=== PATIENT | male | born 1970 | race Caucasian/White ===

== ENCOUNTER → 2024-02-13 16:45 | Outpatient (REF) | payer OTHER, SELFPAY | LOC: HWRAD 16:45 | PROVIDERS: ATTENDING PHYSICIAN Family Medicine | DX: M54.50 Low back pain, unspecified (principal); N20.0 Calculus of kidney | CPT/HCPCS: 74018 ==

== ENCOUNTER → 2024-05-25 06:16 | Day surgery (SDC) | payer OTHER, SELFPAY | LOC: GI 06:16 | PROVIDERS: ATTENDING PHYSICIAN Internal Medicine Gastroenterology | DX: Z12.11 Encounter for screening for malignant neoplasm of colon (principal); K64.8 Other hemorrhoids; K57.30 Diverticulosis of large intestine without perforation or abscess without bleeding; K63.5 Polyp of colon; Z86.010 Personal history of colon polyps | CPT/HCPCS: 45385; 88305 ==

== ENCOUNTER 2024-09-10 13:16 | Emergency (ER) | payer OTHER, SELFPAY ==
[2024-09-10 13:49] VITALS: BP 158/103
--- NOTE | 2024-09-10 13:55 | ED.GENMED ---
ED Provider Triage
<Jose Angel Zuniga PA-C - Last Filed: 09/10/24 13:56>
-
Patient seen by provider in Triage?: Seen in Triage
54 yo male presents with L thumb lac while using a universal grinder tool. Last tetanus unknown
2cm linear lac overlying the dorsal MCP joint, likely complete extensor tendon lac as pt cannot extend thumb against gravity
Obtain XR, update TDAP
History of Present Illness
<Jose Angel Zuniga PA-C - Last Filed: 09/10/24 13:56>
General
Chief Complaint: Skin Surface Trauma
Time Seen by Provider: 09/10/24 16:06
<Sarah Kerns MD - Last Filed: 09/10/24 16:29>
General
Source: patient
History of Present Illness
History of Present Illness:
54-year-old male presents emergency department after accidentally suffering a laceration to his left thumb while using a universal grinder tool. He states that it slipped. This happened just prior to presentation. He is unaware of his last tetanus. He denies
any other complaints.
Past History
<Jose Angel Zuniga PA-C - Last Filed: 09/10/24 13:56>
Past History
ED Past Medical History: Other (migraines)
ED Past Surgical History: Other (hernia repair)
Social History
Living: with family
Employment: Employed
<Sarah Kerns MD - Last Filed: 09/10/24 16:29>
Social History
Tobacco: Non-smoker
Alcohol: Occasional
Drug: None
Phy Exam
<Sarah Kerns MD - Last Filed: 09/10/24 16:29>
Physical Exam
Physical Exam:
GENERAL: Alert , in no apparent distress
EYE: pupils equal and round
NECK: Supple
ENT: o/p clr, mmm.
CARDIAC: Regular rate and rhythm .
LUNGS: Clear breath sounds bilaterally, no acute respiratory distress, no wheezes/rales/rhonchi
ABDOMEN: Soft, without focal tenderness, no r/g, no cvat
NEUROLOGICAL: Alert and oriented, no focal neuro deficits
SKIN: Warm and dry, 2.5 CM lac noted dorsal mcp area L thumb with superficial less than 1 cm deep abrasion just superior to this. Inspected through FROM, tendon appears severed and pt unable to fully extend thumb. No joint invovlement suspected.
cap refill wnl, sens intact.
MUSCULOSKELETAL: No edema, well perfused.
PSYCH: Normal and appropriate interaction.
Course
<Jose Angel Zuniga PA-C - Last Filed: 09/10/24 13:56>
Orders/Labs/Results
Orders:
Orders
09/10/24 13:54
Tetanus/Diphth/Acelpertussis [Adacel] 0.5 ml IM .ONCE ONE
CR Finger(s)/thumb Min 2 Vw Lt Urgent
Comment:
Reason For Exam: thumb lac
Vital Signs
Initial and Last Documented VS:
Initial Vital Signs
Temp Pulse Resp BP Pulse Ox
97.4 F 92 20 158/103 99
09/10/24 13:49 09/10/24 13:49 09/10/24 13:49 09/10/24 13:49 09/10/24 13:49
Last Documented Vital Signs
Temp Pulse Resp BP Pulse Ox
97.4 F 92 20 158/103 99
09/10/24 13:49 09/10/24 13:49 09/10/24 13:49 09/10/24 13:49 09/10/24 13:49
<Sarah Kerns MD - Last Filed: 09/10/24 16:29>
Orders/Labs/Results
Orders:
Orders
09/10/24 13:54
Tetanus/Diphth/Acelpertussis [Adacel] 0.5 ml IM .ONCE ONE
CR Finger(s)/thumb Min 2 Vw Lt Urgent
Comment:
Reason For Exam: thumb lac
Vital Signs
Initial and Last Documented VS:
Initial Vital Signs
Temp Pulse Resp BP Pulse Ox
97.4 F 92 20 158/103 99
09/10/24 13:49 09/10/24 13:49 09/10/24 13:49 09/10/24 13:49 09/10/24 13:49
Last Documented Vital Signs
Temp Pulse Resp BP Pulse Ox
97.4 F 92 20 158/103 99
09/10/24 13:49 09/10/24 13:49 09/10/24 13:49 09/10/24 13:49 09/10/24 13:49
Procedures
<Sarah Kerns MD - Last Filed: 09/10/24 16:29>
Laceration Closure
Thumb:
Status of Wound: clean
Size of Wound in cm: 2.5
Description of Wound Edges: sharp
Preparation: cleaned with soap & water
Anesthesia: 1% Lidocaine with epi
Revision/Debridement: routine- no revision
Type of Closure: single layer closure
Skin Closure Material: 4-0 nylon
Number of sutures: 4
Additional information:
Tendon visible and appears to be fully lacerated. No joint involvement noted
<Sarah Kerns MD - Last Filed: 09/10/24 16:29>
*Critical Care Note
Total Time (30-74mins, 75-104mins- exclusive of procedures): Not Applicable
<Sarah Kerns MD - Last Filed: 09/10/24 16:29>
Update Note
Update Note:
Patient presents to the Emergency Department with _laceration
Number and Complexity of Problems Addressed at the Encounter
� Chronic conditions affecting care:
� Acute Exacerbation and/or Progression of Chronic Illness:
� Differential Diagnosis includes: But not limited to soft tissue injury, tendon injury, joint injury, etc. etc.
Amount and/or Complexity of Data to be Reviewed and Analyzed
� I performed an independent evaluation of and my interpretation is:
EKG:
CT:
Xrays: Read by me no fracture noted
Laboratory Studies:
Other:
� Review of other/old records reveals:
� Clinical information was obtained by an independent historian:
� Prescriptions/Medications Considered but not given:
� Further testing considered but not performed:
Risk of Complications and/or Morbidity or Mortality of Patient Management
� Social determinants of health affecting care:
� Discussion with other providers (PCP, Hospitalists, Consultants, etc):
� Escalation of care including admission/observation vs risk of discharge considered: Case discussed via [facility] text with Dr. Shields, aware of my concern regarding suspected EPL injury. Will see patient on Friday in his
[place] office. Agrees with plan for loose closure, antibiotics, tetanus updated.
ED Attending Note
<Jose Angel Zuniga PA-C - Last Filed: 09/10/24 13:56>
-
Portions of this chart may have been created with voice recognition software.� Occasional wrong word or��sound alike� substitutions may have occurred due to the inherent limitations of voice recognition software.
Discharge Plan
Departure
Patient Disposition: Home (Routine Discharge)
Date of Disposition: 09/10/24
Time of Disposition: 16:29
Patient with high blood pressure during this ER visit?: Yes
Condition: Good
Discharge Problem:
tendon injury, Laceration
Instructions: Laceration Repair With Stitches (DC), Tendon Laceration, BLOOD PRESSURE
Prescriptions:
New
cephalexin 500 mg capsule
500 mg PO Q6H Qty: 20 0RF
No Action
hydrocodone-acetaminophen 5 MG/500 MG tablet
1 tab PO Q4HPRN Qty: 15 0RF
hydrocodone-acetaminophen [Vicodin] 1 EACH tablet
1 tab PO Q6HPRN PRN (Reason: finger pain) Qty: 6 0RF
cephalexin 500 MG capsule
500 mg PO QID Qty: 40 0RF
Referrals:
Eliot Shields MD [Active] - 09/14/24
Activity Restrictions/Additional Instructions:
CALL DR SHIELDS ON Friday TO SECURE YOUR APPT ON FRIDAY. IF YOU DEVELOP REDNESS/WARMTH/DRAINAGE/FEVER, INCREASING/NEW PAIN OR OTHER WORRISOME SIGNS, GO TO THE ER IMMEDIATELY! YOU HAVE SUSPECTED TENDON INJURY.
Interventions
Interventions:
*Risk Screen - Suicide Last Done: 09/10/24 13:49
*General Assessment Last Done: 09/10/24 13:49
*Neglect/Abuse Screening Last Done: 09/10/24 13:49
Discharge Date and Time
Print Language: PASHTO
[2024-09-10 16:30] VITALS: BP 156/88
[2024-09-10] MEDS: ADACEL 0.5 ML IM (17:00)
== END 2024-09-10 17:10 | disposition home or self-care (01) ==
LOC: EMR 13:16
PROVIDERS: EMERGENCY PHYSICIAN Emergency Medicine; FAMILY PHYSICIAN Family Medicine
DX: S66.222A Laceration of extensor muscle, fascia and tendon of left thumb at wrist and hand level, initial encounter (principal); W29.0XXA Contact with powered kitchen appliance, initial encounter; Z23 Encounter for immunization; R03.0 Elevated blood-pressure reading, without diagnosis of hypertension
CPT/HCPCS: 99283; 12001; 90471; 73140; 90715

== ENCOUNTER 2024-11-04 10:02 | Outpatient (RCR) | payer OTHER, SELFPAY | END 2024-11-04 23:59 | disposition home or self-care (01) | LOC: ROT 10:02 | PROVIDERS: ATTENDING PHYSICIAN Orthopaedic Surgery Hand Surgery; FAMILY PHYSICIAN Family Medicine | DX: Z47.89 Encounter for other orthopedic aftercare (principal); S66.222D Laceration of extensor muscle, fascia and tendon of left thumb at wrist and hand level, subsequent encounter; Z73.6 Limitation of activities due to disability | CPT/HCPCS: 97018; 97110; 97140; 97166; 97535 ==

== ENCOUNTER 2024-11-25 10:08 | Outpatient (RCR) | payer OTHER, SELFPAY | END 2024-11-25 23:59 | disposition home or self-care (01) | LOC: RPT 10:08 | PROVIDERS: ATTENDING PHYSICIAN Orthopaedic Surgery Hand Surgery; FAMILY PHYSICIAN Family Medicine | DX: Z47.89 Encounter for other orthopedic aftercare (principal); S66.222D Laceration of extensor muscle, fascia and tendon of left thumb at wrist and hand level, subsequent encounter; Z73.6 Limitation of activities due to disability | CPT/HCPCS: 97018; 97110; 97140 ==

== ENCOUNTER → 2025-07-30 07:34 | Outpatient (REF) | payer OTHER, SELFPAY | LOC: MRI 07:34 | PROVIDERS: ATTENDING PHYSICIAN Student in an Organized Health Care Education/Training Program | DX: G50.0 Trigeminal neuralgia (principal) | CPT/HCPCS: 70553; A9575 ==

== ENCOUNTER 2025-08-01 19:06 | Inpatient (IN) | payer OTHER, SELFPAY ==
[2025-08-01 14:31] VITALS: BP 165/103
--- NOTE | 2025-08-01 15:11 | ED.GENMED ---
History of Present Illness
<Jessica Montalvo NP - Last Filed: 08/01/25 19:49>
General
Chief Complaint: DVT/Possible Blood Clot
Source: patient
Exam Limitations: none
Time Seen by Provider: 08/01/25 14:41
Nursing documentation reviewed up to this point in time: agreed with
History of Present Illness
History of Present Illness:
Patient sent to the emergency department by PCP for further evaluation/workup for a left retromandibular vein thrombus. He states that he developed pain over the left TMJ approximately 3 weeks ago. He followed up with his primary care provider 1
week later and was started on' some type of medication' to treat suspected TMJ. Patient states the pain continue to worsen and now is migrating down the left side of his face to the submandibular area. He was sent for an outpatient MRI on 07/30
which showed an extensive thrombus in the left retromandibular vein. He was sent to the ED by PCP requesting MRA/MRV of the neck as recommended by radiology. Patient denies any prior history of thrombus formation. He reports having cavities
filled to left teeth but this was after the pain is started. He reports swelling to the left side of his face after eating. Brought self to the emergency department for evaluation.
Past History
<Jessica Montalvo NP - Last Filed: 08/01/25 19:49>
Past History
ED Past Medical History: Hypercholesterolemia, Other (migraines, prediabetes) and Other (Kidney stones)
ED Past Surgical History: Appendectomy, Orthopedic (Tendon repair left thumb 09/2024) and Other (hernia repair 05/2025 )
Social History
Tobacco: Non-smoker
Alcohol: Occasional
Drug: None
Living: with family
Employment: Employed
Phy Exam
<Jessica Montalvo NP - Last Filed: 08/01/25 19:49>
General Physical Exam
General Presentation: well appearing and no apparent distress
General age: appears stated age
General Skin: warm and dry
General Habitus: normal
General Mental: alert
ENT Exam
ENT Exam: other (Pain left side of face from ear to submandibular region. No visible swelling)
Cardiovascular Exam
Cardiovascular Exam: regular rate/rhythm and no edema
Pulmonary Exam
Pulmonary Exam: lungs clear and no respiratory distress
Musculoskeletal Exam
Musculoskeletal Exam: full ROM and neuro vasc intact
Skin Exam
Skin Exam: normal color, warm/dry and no rash
Psychiatric Exam
Psychiatric Exam: normal mood/affect
Course
<Jessica Montalvo NP - Last Filed: 08/01/25 19:49>
Orders/Labs/Results
Orders:
Orders
08/01/25 Lunch
Regular
At Your Request: Full Participation
Does patient need a safe tray?: No
08/01/25 15:42
Complete Blood Count/With Diff Urgent
Comprehensive Metabolic Panel Urgent
PTT Urgent
Comment: ADD ON
Prothrombin Time Urgent
08/01/25 16:42
HEMATOLOGY CONSULT Urgent
Consulting Provider: Michela Bowers
Was physician already notified: Yes
08/01/25 17:02
Add On- LAB Urgent
Tests Added?: PTT
08/01/25 17:05
Clindamycin Phosphate [Cleocin] 300 mg 0.9% Sodium Chloride [Nss] 50 ml IV NOW
08/01/25 17:06
Heparin 7,400 units IV NOW STA
Nursing to Place Non Medication Order As Directed
Physician Order: PTT 6 hours after initial start of Heparin infusion
Above order entered?: Yes
08/01/25 17:15
Heparin 22643 Units/250 ml 25,000 units in 250 ml IV PER PROTOCOL
Weight to be used for heparin protocol in kilograms (kg):: 92
Protocol:: DVT/PE
PTT Goal Range to be used:: PTT 73 to 111 seconds
Order type:: Initial
INITIAL Infusion Dose (UNITS/KG/hr) & then follow protocol:: 18 units/kg/hr
Infusion Dose in UNITS/hr & then follow protocol (UNITS/hr):: 1,700
INFUSION RATE in mL/hr & then follow protocol (mL/hr):: 17
For DVT/PE algorithm, re-bolus for low PTT?: Yes
PTT less than or equal to 64 seconds:: Re-bolus 80 units/kg (max 10,000units). Increase by 400 units/hr
(+ 4mL/hr)
PTT 64.1 to 72.9 seconds:: Re-bolus 40 units/kg (max 5,000 units). Increase by 200 units/hr
(+ 2mL/hr)
PTT 73 to 111 seconds:: Target Range. No change in rate.
PTT 111.1 to 130.9 seconds:: Decrease rate by 200 units/hr (- 2 mL/hr)
PTT 131 to 199.9 seconds:: HOLD for 1 hr. Then decrease by 300 units/hr (- 3mL/hr)
PTT greater than or equal to 200 seconds:: HOLD for 2 hrs & Notify Provider. Then decrease by 400 units/hr
(- 4mL/hr)
Lab follow-up:: Each change, PTT q6h until 2 consecutive are therapeutic. Then
PTT daily.
08/01/25 17:24
Heparin 3,700 units IV PRN PRN
08/01/25 17:31
Neck With & W/O Contrast MRA [MA Neck With & W/o Contrast] Urgent
Comment: MRA/MRV neck
Reason For Exam: eval left retromandibular vein thrombosis
Recent pill cam endoscopy?: No
08/01/25 18:36
Admit/Transfer Patient As Directed
Co-Sign Provider:
Level of Care: Inpatient admission
Assign to:: Telemetry
Physician / Group: Zackary-Leo Sheu
Diagnosis: Left retromandibular vein thrombosis
Reason for Telemetry: Arrhythmia
Date to Stop Telemetry: 08/04/25
Time to Stop Telemetry: 11:00
Reason for Hospitalization: Left retromandibular vein thrombosis
Expected length of stay greater than two midnights?: Yes
ELOS- Estimated Length of Stay in days: 2
I certify the patient meets the requirements for IP care: Yes
PRN Pain Medication Management As Directed
May give lesser potent ordered pain med per pt: Yes
preference::
Protocol:: Medication orders for pain may be administered in a
manner that supports deferring to patient preference
when the pt is:
- Requesting an ordered lesser potent pain medication.
Least to most potent pain medications are defined
as: acetaminophen < NSAID < tramadol < opioids
(morphine, oxycodone, hydromorphone).
- Requesting a lesser dose of the same medication IF
ORDERED.
- Requesting a less intrusive route of administration
if both routes are prescribed by the provider (PO <
IV).
08/01/25 18:43
Code Status As Directed
Resuscitation Status: Full Code
08/01/25 22:00
Heparin 7,400 units IV PRN PRN
08/02/25 00:05
PTT Urgent
08/04/25 11:00
DC Protocol for Telemetry ONCE
Abnormal Lab Results
08/01/25
15:42
MPV 10.8 H fL
(7.4-10.4)
Absolute Monos (auto) 0.8 H 10^3/uL
(0.1-0.6)
Lymphocytes % 19.6 L %
(20.5-51.1)
Monocytes % 9.7 H %
(1.7-9.3)
APTT 22.4 L Sec
(23.4-35.0)
BUN 21 H mg/dl
(9-20)
Glucose 175 H mg/dl
(70-99)
08/01/25 15:42
08/01/25 15:42
Vital Signs
Initial and Last Documented VS:
Initial Vital Signs
Temp Pulse Resp BP Pulse Ox
98.0 F 99 16 165/103 98
08/01/25 14:31 08/01/25 14:31 08/01/25 14:31 08/01/25 14:31 08/01/25 14:31
Last Documented Vital Signs
Temp Pulse Resp BP Pulse Ox
98.0 F 88 18 165/103 97
08/01/25 14:31 08/01/25 19:26 08/01/25 19:26 08/01/25 14:31 08/01/25 19:26
<Alexandre Landeros, DO - Last Filed: 08/01/25 20:41>
Orders/Labs/Results
Orders:
Orders
08/01/25 Lunch
Regular
At Your Request: Full Participation
Does patient need a safe tray?: No
08/01/25 15:42
Complete Blood Count/With Diff Urgent
Comprehensive Metabolic Panel Urgent
PTT Urgent
Comment: ADD ON
Prothrombin Time Urgent
08/01/25 16:42
HEMATOLOGY CONSULT Urgent
Consulting Provider: Michela Bowers
Was physician already notified: Yes
08/01/25 17:02
Add On- LAB Urgent
Tests Added?: PTT
08/01/25 17:05
Clindamycin Phosphate [Cleocin] 300 mg 0.9% Sodium Chloride [Nss] 50 ml IV NOW
08/01/25 17:06
Heparin 7,400 units IV NOW STA
Nursing to Place Non Medication Order As Directed
Physician Order: PTT 6 hours after initial start of Heparin infusion
Above order entered?: Yes
08/01/25 17:15
Heparin 54416 Units/250 ml 25,000 units in 250 ml IV PER PROTOCOL
Weight to be used for heparin protocol in kilograms (kg):: 92
Protocol:: DVT/PE
PTT Goal Range to be used:: PTT 73 to 111 seconds
Order type:: Initial
INITIAL Infusion Dose (UNITS/KG/hr) & then follow protocol:: 18 units/kg/hr
Infusion Dose in UNITS/hr & then follow protocol (UNITS/hr):: 1,700
INFUSION RATE in mL/hr & then follow protocol (mL/hr):: 17
For DVT/PE algorithm, re-bolus for low PTT?: Yes
PTT less than or equal to 64 seconds:: Re-bolus 80 units/kg (max 10,000units). Increase by 400 units/hr
(+ 4mL/hr)
PTT 64.1 to 72.9 seconds:: Re-bolus 40 units/kg (max 5,000 units). Increase by 200 units/hr
(+ 2mL/hr)
PTT 73 to 111 seconds:: Target Range. No change in rate.
PTT 111.1 to 130.9 seconds:: Decrease rate by 200 units/hr (- 2 mL/hr)
PTT 131 to 199.9 seconds:: HOLD for 1 hr. Then decrease by 300 units/hr (- 3mL/hr)
PTT greater than or equal to 200 seconds:: HOLD for 2 hrs & Notify Provider. Then decrease by 400 units/hr
(- 4mL/hr)
Lab follow-up:: Each change, PTT q6h until 2 consecutive are therapeutic. Then
PTT daily.
08/01/25 17:24
Heparin 3,700 units IV PRN PRN
08/01/25 17:31
Neck With & W/O Contrast MRA [MA Neck With & W/o Contrast] Urgent
Comment: MRA/MRV neck
Reason For Exam: eval left retromandibular vein thrombosis
Recent pill cam endoscopy?: No
08/01/25 18:36
Admit/Transfer Patient As Directed
Co-Sign Provider:
Level of Care: Inpatient admission
Assign to:: Telemetry
Physician / Group: Shameka Ascencio
Diagnosis: Left retromandibular vein thrombosis
Reason for Telemetry: Arrhythmia
Date to Stop Telemetry: 08/04/25
Time to Stop Telemetry: 11:00
Reason for Hospitalization: Left retromandibular vein thrombosis
Expected length of stay greater than two midnights?: Yes
ELOS- Estimated Length of Stay in days: 2
I certify the patient meets the requirements for IP care: Yes
PRN Pain Medication Management As Directed
May give lesser potent ordered pain med per pt: Yes
preference::
Protocol:: Medication orders for pain may be administered in a
manner that supports deferring to patient preference
when the pt is:
- Requesting an ordered lesser potent pain medication.
Least to most potent pain medications are defined
as: acetaminophen < NSAID < tramadol < opioids
(morphine, oxycodone, hydromorphone).
- Requesting a lesser dose of the same medication IF
ORDERED.
- Requesting a less intrusive route of administration
if both routes are prescribed by the provider (PO <
IV).
08/01/25 18:43
Code Status As Directed
Resuscitation Status: Full Code
08/01/25 22:00
Heparin 7,400 units IV PRN PRN
08/02/25 00:05
PTT Urgent
08/04/25 11:00
DC Protocol for Telemetry ONCE
Abnormal Lab Results
08/01/25
15:42
MPV 10.8 H fL
(7.4-10.4)
Absolute Monos (auto) 0.8 H 10^3/uL
(0.1-0.6)
Lymphocytes % 19.6 L %
(20.5-51.1)
Monocytes % 9.7 H %
(1.7-9.3)
APTT 22.4 L Sec
(23.4-35.0)
BUN 21 H mg/dl
(9-20)
Glucose 175 H mg/dl
(70-99)
08/01/25 15:42
08/01/25 15:42
Vital Signs
Initial and Last Documented VS:
Initial Vital Signs
Temp Pulse Resp BP Pulse Ox
98.0 F 99 16 165/103 98
08/01/25 14:31 08/01/25 14:31 08/01/25 14:31 08/01/25 14:31 08/01/25 14:31
Last Documented Vital Signs
Temp Pulse Resp BP Pulse Ox
98.0 F 88 18 165/103 97
08/01/25 14:31 08/01/25 19:26 08/01/25 19:26 08/01/25 14:31 08/01/25 19:26
<Jessica Montalvo NP - Last Filed: 08/01/25 19:49>
*Radiology
Radiology exam reviewed: radiology read reviewed
*Pulse Oximetry
SaO2: 98
Oxygen Mode of Delivery: Room air
Patient hypoxic: no
*Critical Care Note
Total Time (30-74mins, 75-104mins- exclusive of procedures): Not Applicable
<Jessica Montalvo NP - Last Filed: 08/01/25 19:49>
Update Note
Update Note:
Patient to the emergency department for evaluation of left retromandibular vein thrombus. He developed pain to the left side of his face approximately 3 weeks ago. Pain persisted and he was sent for an MRI by his PCP on 07/30. MRI result received
today by PCP confirming the thrombus of the left retromandibular vein. He was advised to come to the emergency department. On arrival he is awake alert and oriented. Vital signs are stable and he remains afebrile. Labs reviewed no concerning
findings. Dr. Solis was consulted. She recommends admission for MRA/MRV as was recommended by radiology. Will place on IV heparin. IV antibiotics with Pseudomonas coverage as requested by Dr. Solis. Discussed plan with patient and he is
agreeable to this admission. Patient to be admitted to hospital service
ED Attending Note
<Jessica Montalvo NP - Last Filed: 08/01/25 19:49>
-
Portions of this chart may have been created with voice recognition software.� Occasional wrong word or��sound alike� substitutions may have occurred due to the inherent limitations of voice recognition software.
<Alexandre Landeros DO - Last Filed: 08/01/25 20:41>
ED Attending Note
I performed the substantive portion of visit, reviewed & personally made and approve the management plan that is documented in note by myself or JOSE.: Yes
ED Attending Note:
55-year-old with retromandibular venous thrombosis. Question related to recent dental work. Needs additional imaging to evaluate extent of thrombophlebitis
Discharge Plan
Departure
Patient Disposition: Admit
Date of Disposition: 08/01/25
Time of Disposition: 16:41
Presentation/result/management discussed w/ accepting MD/DO: Hospitalist
Patient with high blood pressure during this ER visit?: No
Condition: Fair
Covid-19: Not Applicable
Discharge Problem:
Retromandibular thrombus
Interventions
Interventions:
*Risk Screen - Suicide Last Done: 08/01/25 14:31
*General Assessment Last Done: 08/01/25 14:31
*Neglect/Abuse Screening Last Done: 08/01/25 14:31
*ED- Fall Risk Assessment Last Done: 08/01/25 19:27
ED- Cardiac Assessment Last Done: 08/01/25 19:27
ED- Pulmonary Assessment Last Done: 08/01/25 19:27
ED-Peripheral Vascular Assessment Last Done: 08/01/25 19:27
ED-Skin Assessment Last Done: 08/01/25 19:27
[2025-08-01 15:57] LABS: Hematocrit 47.6 % (39.0-52.0); Hemoglobin 16.9 g/dL (13.0-18.0); Mean Corp Hgb Conc. 35.5 g/dL (33.0-37.0); Mean Corpuscular Volume 83.4 fL (80.0-94.0); Nucleated Red Blood Cells % 0 % (-); Platelet Count 240 10^3/uL (130-400); Red Cell Dist. Width 12.6 % (11.5-14.5)
[2025-08-01 16:04] LABS: INR 0.91; PT 12.6 Sec (11.4-14.6)
[2025-08-01 16:18] LABS: ALT (SGPT) 46 U/L (0-50); AST (SGOT) 31 U/L (17-59); Albumin 4.8 g/dl (3.5-5.0); Alkaline Phosphatase 87 U/L (38-126); Blood Urea Nitrogen 21 mg/dl (9-20); Calcium 10.0 mg/dl (8.4-10.2); Carbon Dioxide 26 mmol/L (22-30); Chloride 104 mmol/L (98-107); Glucose 175 mg/dl (70-99); Potassium 4.9 mmol/L (3.5-5.1); Sodium 136 mmol/L (135-145); Total Protein 8.0 g/dl (6.3-8.2); eGFR > 60.00
--- NOTE | 2025-08-01 16:44 | HPS.HSE ---
Family Physician
-
Family Physician:
Chief Complaint
-
Left sided jaw/mandibular pain.
History of Present Illness
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 Pt reports developing pain over the left TMJ approximately 3 weeks ago. Saw dentist who treated patient
for 5 cavities. Pain however persisted, exacerbated by chewing hard foods. Primary care provider briefly started patient on unspecified medication for possible trigeminal neuralgia until outpt MRI 07/30 noted extensive thrombus in the left
retromandibular vein. Patient stated the pain continued to worsen and since migrated down to the left side of his face, submandibular area. Patient denies any prior history of thrombus formation. Denies fever chills nausea vomiting diarrhea
constipation or pain at rest. ED eval was also notable for hypertensive urgency, BP high 165/103. Denies hx hypertension, endorses monitoring BP at home.
Medical History
Past Medical History
Past Medical History: Reports Other (as above)
Past Surgical History: Reports Other (Left Inguinal Hernia repair)
Social History
Tobacco: Former Smoker (quit 20 years ago)
Alcohol: None
Drug: Marijuana
Living: Alone
Employment: Employed
Family History
Family History: Not pertinent (reviewed)
Allergies / Home Medications
Allergies reflects when Allergies were last updated in [facility].
Home Medications with original date entered in [facility]
Allergy/Medication List:
Allergies
Allergy/AdvReac Type Severity Reaction Status Date / Time
Penicillins Allergy Rash, Hives Verified 08/01/25 14:37
Home Medications
dextroamphetamine-amphetamine 30 mg tablet (Adderall) 15 mg PO BID 08/01/25
Review of Systems
-
A 12 point ROS was completed and negative except as noted: Yes
Constitutional: Reports Other (as below)
Physical Exam
Vital Signs
Vital Signs
Temp Pulse Resp BP Pulse Ox
98.0 F 99 16 165/103 98
08/01/25 14:31 08/01/25 14:31 08/01/25 14:31 08/01/25 14:31 08/01/25 15:19
Physical Exam
General: Other (as below)
Laboratory Results
-
08/01/25 15:42
08/01/25 15:42
Laboratory Results
PT 12.6 Sec (11.4-14.6) 08/01/25 15:42
INR 0.91 08/01/25 15:42
Total Bilirubin 0.6 mg/dl (0.2-1.3) 08/01/25 15:42
AST 31 U/L (17-59) 08/01/25 15:42
ALT 46 U/L (0-50) 08/01/25 15:42
Alkaline Phosphatase 87 U/L (38-126) 08/01/25 15:42
Impression/Plan
-
ROS
General: Denies fever chills night sweats unexpected weight loss
Neuro: Denies seizure shaking loss of consciousness dizziness vertigo
Psych: denies depression hallucinations confusion manic episodes
Endocrine: Denies polyuria polydipsia polyphagia heat/cold intolerance
HEENT: Denies blindness visual disturbances epistaxis. Reports Left sided TMJ pain exacerbated by chewing hard foods since migrated to submandibular area. Endorses intermittent left sided facial swelling
Pulmonary: denies coughing hemoptysis sneezing sob dyspnea on exertion
Cardiovascular: denies chest pain palpitations leg swelling
Hematology: denies signs symptoms of anemia easy bruising/bleeding
Gastrointestinal: denies nausea vomiting diarrhea constipation hematemesis hematochezia melena
Genito-Urinary: denies retention incontinence dysuria
Musculoskeletal: denies joint pain weakness
Dermatology: denies rash laceration bruising
Physical Exam
General: No pallor, cyanosis, or jaundice.
HEENT: Throat clear. PERRLA Normocephalic atraumatic. Submandibular Lymphadenopathy
NECK: Supple. No JVD Carotid Bruits
RESPIRATORY: Lungs clear to auscultation. No crackles wheezes stridor
CVS: S1, S2 normal. RRR. No murmur, rub or gallop.
ABDOMEN: Soft, non-tender. No distension. BS+/normal.
EXTREMITIES: No peripheral cyanosis or edema.
BUS SYSTEM OPERATOR: AOx3. No focal deficits.
IMPRESSION:
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 Pt reports developing pain over the left TMJ approximately 3 weeks ago. Saw dentist who treated patient
for 5 cavities. Pain however persisted, exacerbated by chewing hard foods. Primary care provider briefly started patient on unspecified medication for possible trigeminal neuralgia until outpt MRI 07/30 noted extensive thrombus in the left
retromandibular vein. Patient stated the pain continued to worsen and since migrated down to the left side of his face, submandibular area. No pain at rest. Patient denied any prior history of thrombus formation. Denied fever chills nausea
vomiting diarrhea constipation or pain at rest. ED eval was also notable for hypertensive urgency, BP high 165/103. Denies hx hypertension, endorses monitoring BP at home.
PLAN:
#Left retromandibular vein thrombus
hep gtt
Clindamycin started in ED, cont
Follow up MRA/MRV neck
Hematology Eval
#HTN Urgency
Tele admit
prn Labetalol Hydralazine SBP>160 or DBP>100 (Hold Labetalol if HR<60)
#Hx NIDDM
check A1c
low dose sliding scale for now
ok for regular diet
#Hx Marijuana use
check UDS
#ADHD
cont home Adderall
DVT ppx Hep gtt as above
Full Code
I spent a total of 80 minutes with the patient or on the floor. More than 50% of this time involved counseling and coordination of care.
[2025-08-01 17:05] VITALS: BMI 28.3
[2025-08-01 17:29] LABS: APTT 22.4 Sec (23.4-35.0)
[2025-08-01] MEDS: CLEOCIN 52 MG IV (17:42)
[2025-08-01 18:01] VITALS: BP 151/112
[2025-08-01] MEDS: HEPARIN 7400 UNITS IV (18:02)
[2025-08-01] MEDS: HEPARIN 25000 UNITS/250 ML IV (18:04)
--- NOTE | 2025-08-01 21:30 | PTCARENOTE ---
Pt arrived to unit from ED via stretcher. Ambulated from stretcher to bed. A&Ox3. Heparin gtt maintained at 17 ml/hr. Oriented to unit. Bed in lowest position with call light within reach. Plan of care ongoing.
[2025-08-01 21:38] VITALS: BP 144/100
[2025-08-01 21:45] VITALS: BMI 28.1
[2025-08-01 21:59] LABS: Glucose - Point of Care 149 mg/dl (70-99)
[2025-08-01 22:11] VITALS: BP 150/100
[2025-08-01] MEDS: TRANDATE 10 MG IV (22:20)
[2025-08-01] MEDS: CLEOCIN 300 MG PO (23:02)
[2025-08-01] MEDS: ADDERALL PO (23:15)
[2025-08-01 23:21] VITALS: BP 140/90
[2025-08-02 00:37] LABS: APTT 114.3 Sec (23.4-35.0)
[2025-08-02 04:08] VITALS: BP 133/89
[2025-08-02] MEDS: CLEOCIN 300 MG PO ×4 (05:55→23:33)
[2025-08-02 07:22] LABS: Hematocrit 46.1 % (39.0-52.0); Hemoglobin 16.1 g/dL (13.0-18.0); Mean Corp Hgb Conc. 34.9 g/dL (33.0-37.0); Mean Corpuscular Volume 84.1 fL (80.0-94.0); Platelet Count 222 10^3/uL (130-400); Red Cell Dist. Width 12.7 % (11.5-14.5)
[2025-08-02 07:32] LABS: APTT 68.6 Sec (23.4-35.0)
--- NOTE | 2025-08-02 07:43 | W.PN.HOSP.TC ---
Today's Communication/Plan
-
cont hep gtt
cont abx
IV steroids as per ENT
check antiphospholipid ab profile as per Hematology
Assessment / Plan
Assessment / Plan
Physical Exam
General: No pallor, cyanosis, or jaundice.
HEENT: Throat clear. PERRLA Normocephalic atraumatic. Submandibular Lymphadenopathy
NECK: Supple. No JVD Carotid Bruits
RESPIRATORY: Lungs clear to auscultation. No crackles wheezes stridor
CVS: S1, S2 normal. RRR. No murmur, rub or gallop.
ABDOMEN: Soft, non-tender. No distension. BS+/normal.
EXTREMITIES: No peripheral cyanosis or edema.
CLIENT CARE REPRESENTATIVE: AOx3. conversant coherent
Psych: calm
IMPRESSION:
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 Pt reports developing pain over the left TMJ approximately 3 weeks ago. Saw dentist who treated patient
for 5 cavities. Pain however persisted, exacerbated by chewing hard foods. Primary care provider briefly started patient on unspecified medication for possible trigeminal neuralgia until outpt MRI 07/30 noted extensive thrombus in the left
retromandibular vein. Patient stated the pain continued to worsen and since migrated down to the left side of his face, submandibular area. No pain at rest. Patient denied any prior history of thrombus formation. Denied fever chills nausea
vomiting diarrhea constipation or pain at rest. ED eval was also notable for hypertensive urgency, BP high 165/103. Denies hx hypertension, endorses monitoring BP at home.
PLAN:
#Left retromandibular vein thrombus
hep gtt
Clindamycin started in ED, cont
Hematology Eval appreciated, checking antiphospholipid ab panel, outpt follow up for further thrombophilia testing
ENT eval appreciated IV decadron 6 mg Q8H 3 doses added
MRA/MRV neck appreciated
-Left retromandibular vein thrombosis involving the entire anterior division to the level of the internal jugular vein.
-Thin linear artifact within the left internal jugular vein. Versus a linear thrombus component in the left internal jugular vein. Recommended correlation with ultrasound (ordered).
#HTN Urgency
Tele admit
prn Labetalol Hydralazine SBP>160 or DBP>100 (Hold Labetalol if HR<60)
BP since improved following once dose Labetalol.
#Hx NIDDM
A1c 7.6
low dose sliding scale for now
ok for regular diet
#Hx Marijuana use
UDS appreciated expected pos marijuana amphetamine, rest of screen neg
#ADHD
cont home Adderall
DVT ppx Hep gtt as above
Full Code
I spent a total of 45 minutes with the patient or on the floor. More than 50% of this time involved counseling and coordination of care.
Anticipated Discharge: 24 - 48 hours
Subjective/Interval History
-
Date of Service: August 02, 2025
Seen and examined at bedside in no acute distress resting comfortably in bed. No significant pain at rest. Left sided pain with chewing persists.
Objective Data
-
Labs:
Laboratory Results
08/02/25 08/02/25
00:11 06:55
WBC 7.8
Hgb 16.1
Hct 46.1
Plt Count 222
APTT 114.3 H 68.6 H
Sodium Pending
Potassium Pending
Chloride Pending
Carbon Dioxide Pending
BUN Pending
Creatinine Pending
Glucose Pending
Calcium Pending
Vital Signs:
Vital Signs
Temp Pulse Resp BP Pulse Ox
97.6 F 65 17 133/89 96
08/02/25 04:08 08/02/25 04:08 08/02/25 04:08 08/02/25 04:08 08/02/25 04:08
[2025-08-02 07:48] VITALS: BP 128/79
[2025-08-02 07:58] LABS: Glucose - Point of Care 154 mg/dl (70-99)
[2025-08-02] MEDS: HEPARIN 3700 UNITS IV ×2 (08:07→15:49)
[2025-08-02 08:22] LABS: Blood Urea Nitrogen 16 mg/dl (9-20); Calcium 9.2 mg/dl (8.4-10.2); Carbon Dioxide 23 mmol/L (22-30); Chloride 105 mmol/L (98-107); Estimated Creatinine Clearance 96 ml/min; Glucose 149 mg/dl (70-99); Magnesium 2.1 mg/dl (1.6-2.3); Potassium 4.3 mmol/L (3.5-5.1); Sodium 134 mmol/L (135-145); eGFR > 60.00
[2025-08-02] MEDS: HEPARIN 25000 UNITS/250 ML IV (09:27)
[2025-08-02] MEDS: NOVOLOG FLEXPEN-LOW RESISTANCE 1 UNITS SC (09:29)
[2025-08-02] MEDS: ADDERALL 15 MG PO (09:33)
--- NOTE | 2025-08-02 09:59 | CM ---
Chart reviewed and spoke with patient at bedside
He lives alone in [address] with ADLs. 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
His mother Eloina is aware that he is in the hospital
PCP Cale Gaspar
RX plan yes
Pharmacy [facility] in [place]
no hx of VN nor SNF
DCP is home with no needs
CM will continue to follow up for any dcp needs
[2025-08-02 10:06] LABS: Glycohemoglobin (HgbA1c) 7.6 % (4.0-5.9)
[2025-08-02 11:13] VITALS: BP 146/100
--- NOTE | 2025-08-02 11:28 | CON.ONC ---
Consultation
-
Date Consultation Requested: 08/01/25
Date Consultation Performed: 08/02/25
Requesting Provider: AMY Lowery
Performing Provider: Ayde Rothman MD
Reason for Consultation: retromandibular thrombosis
Impression
Impression
Extensive thrombophlebitis of the left retromandibular vein
Plan
Plan
Continue heparin, with plans to transition to DOAC at the time of discharge
Will check antiphospholipid antibody panel. Remainder of thrombophilia testing to be done as an outpatient
MRA MRV of the neck ordered
ENT consult ordered
He is hospital and arrange outpatient hematology follow-up
Patient History
History of Present Illness
This is a 55-year-old man who has been struggling with pain at the left side of his face, jaw and neck over the past several months. He thought it was TMJ. He saw his dentist who did not find significant abnormalities but treated him for 5
cavities. Pain persisted, exacerbated by chewing hard foods. He was started on gabapentin for possible trigeminal neuralgia. Outpatient MRI on July 30 revealed extensive thrombus in the left retromandibular vein. He was sent to the emergency
room for admission and has been started on antibiotics and heparin. He denies any fever or obvious signs of infection. He has no personal or family history of blood clots. He is a non-smoker. His only outpatient medication is Adderall,
prescribed by his psychiatrist for ADHD. He is borderline diabetic, not on any medications currently. He underwent inguinal hernia surgery over 2 months ago, uncomplicated. 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
Past-Medical/Surgical History
Past medical and surgical history is as per the HPI
Social history; non-smoker, works in construction
Family history: No family history of blood clots
Patient Medication
�Medication �Instructions �Recorded �Confirmed �Last Taken �Type
dextroamphetamine-amphetamine 30 15 mg PO BID 08/01/25 08/01/25 08/01/25 History
mg tablet (Adderall)
Active Medications
Generic Name Dose Route Start Last Admin
Trade Name Freq PRN Reason Stop Dose Admin
Acetaminophen 650 mg 08/01/25 21:27
Acetaminophen 325 Mg Tablet PO 08/29/25 21:26
Q4HPRN PRN
mild pain/SANTANA/temp> 100.4F
Amphetamine/Dextroamphetamine 15 mg 08/01/25 23:00 08/02/25 09:33
Amphet Asp/Amphet/D-Amphet (Adderall) 15 Mg Tablet PO 08/15/25 22:59 15 mg
BID HIMANSHU Administration
Bisacodyl 10 mg 08/01/25 21:27
Bisacodyl 10 Mg Rectal Suppository RECTAL 08/29/25 21:26
[id number] PRN
constipation
Clindamycin HCl 300 mg 08/02/25 00:00 08/02/25 05:55
Clindamycin 150 Mg Capsule PO 300 mg
Q6 HIMANSHU Administration
Dextrose 12.5 grams 08/01/25 21:27
Dextrose 50% (0.5 Grams/Ml) 50 Ml Syringe IV 08/29/25 21:26
[id number] PRN
hypoglycemia
Protocol
Glucagon 1 mg 08/01/25 21:27
Glucagon 1 Mg Vial IM 08/29/25 21:26
PRN PRN
hypoglycemia
Protocol
Heparin Sodium 7,400 units 08/01/25 22:00
Heparin 80 Units/Kg Iv Rebolus IV 08/29/25 21:59
PRN PRN
PTT < OR = 64 seconds
Heparin Sodium 3,700 units 08/01/25 17:24 08/02/25 08:07
Heparin 40 Units/Kg Iv Rebolus IV 08/29/25 17:23 3,700 units
PRN PRN Administration
PTT = 64.1 to 72.9 seconds
Hydralazine HCl 5 mg 08/01/25 21:27
Hydralazine 20 Mg/Ml Vial IV 08/29/25 21:26
Q4HPRN PRN
SBP>160 or DBP>100
Heparin Sodium 25,000 units in 250 mls @ 0 mls/hr 08/01/25 17:15 08/02/25 09:27
Heparin 38888 Units/250 Ml IV 250 mls
PER PROTOCOL HIMANSHU Administration
Protocol
Per Protocol
Ibuprofen 400 mg 08/01/25 21:27
Ibuprofen 400 Mg Tablet PO 08/29/25 21:26
Q6HPRN PRN
moderate severe pain
Insulin Aspart 0 units 08/02/25 07:30 08/02/25 09:29
Insulin Aspart Low Resistance 300 Units/3 Ml Pen.Injctr SC 08/30/25 07:29 1 units
AC HIMANSHU Administration
Protocol
Labetalol HCl 10 mg 08/01/25 21:27 08/01/25 22:20
Labetalol Hcl 5 Mg/1 Ml (20 Mg/4 Ml) Injection IV 08/29/25 21:26 10 mg
Q6HPRN PRN Administration
SBP>160 or DBP>100
Morphine Sulfate 2 mg 08/01/25 21:27
Morphine 2 Mg/Ml Syringe IV 08/15/25 21:26
Q4HPRN PRN
severe breakthrough pain
Polyethylene Glycol 17 grams 08/01/25 21:27
Polyethylene Glycol Powder 17 Grams Packet PO 08/29/25 21:26
DAILYPRN PRN
constipation
Senna/Docusate Sodium 1 tablet 08/01/25 21:27
Docusate W/Senna (Estephania-Colace) Tablet PO 08/29/25 21:26
BIDPRN PRN
constipation
Review of Systems
-
All Other Systems: Not reviewed unless documented
Physical Exam
-
General: Well Developed, Well Nourished and No Apparent Distress
Neurology: Non Focal, No Lateralizing Symptoms and No Word Finding Difficulty
Skin: Warm and Dry
Hematologic / Lymphatic: No Lymphadenopathy
Psych: Calm and Intact Judgement/Insight
Labs
Lab Results
WBC 7.8 10^3/uL (4.8-10.8) 08/02/25 06:55
RBC 5.48 10^6/uL (4.70-6.10) 08/02/25 06:55
Hgb 16.1 g/dL (13.0-18.0) 08/02/25 06:55
Hct 46.1 % (39.0-52.0) 08/02/25 06:55
MCV 84.1 fL (80.0-94.0) 08/02/25 06:55
MCH 29.4 pg (27.0-31.0) 08/02/25 06:55
MCHC 34.9 g/dL (33.0-37.0) 08/02/25 06:55
RDW 12.7 % (11.5-14.5) 08/02/25 06:55
Plt Count 222 10^3/uL (130-400) 08/02/25 06:55
MPV 10.5 fL (7.4-10.4) H 08/02/25 06:55
Abs Immat Gran (auto) 0.0 10^3/uL (0-0.05) 08/01/25 15:42
Absolute Neuts (auto) 5.7 10^3/uL (1.4-6.5) 08/01/25 15:42
Absolute Lymphs (auto) 1.7 10^3/uL (1.2-3.4) 08/01/25 15:42
Absolute Monos (auto) 0.8 10^3/uL (0.1-0.6) H 08/01/25 15:42
Absolute Eos (auto) 0.1 10^3/uL (0-0.7) 08/01/25 15:42
Absolute Basos (auto) 0.1 10^3/uL (0-0.2) 08/01/25 15:42
Immature Gran % 0.4 % (0-0.5) 08/01/25 15:42
Neutrophils % 67.8 % (42.2-75.2) 08/01/25 15:42
Lymphocytes % 19.6 % (20.5-51.1) L 08/01/25 15:42
Monocytes % 9.7 % (1.7-9.3) H 08/01/25 15:42
Eosinophils % 1.7 % (0-6) 08/01/25 15:42
Basophils % 0.8 % (0-2) 08/01/25 15:42
Creatinine 0.9 mg/dL (0.7-1.3) 08/02/25 06:55
Vital Signs
Vital Signs
Temp Pulse Resp BP Pulse Ox
97.0 F 79 17 146/100 98
08/02/25 11:13 08/02/25 11:13 08/02/25 11:13 08/02/25 11:13 08/02/25 11:13
--- NOTE | 2025-08-02 13:01 | CON.MD ---
Consultation - Medical
-
55 yo presents c few weeks of L ear pain, in front of ear, and radiating down jaw, worse with eating
Also states he notices swelling of cheek with eating as well. Had been taking Advil for this
Had some dental work for cavities recently
On eval in ER, scan shows L post facial vein thrombosis, now on Heparin and Clinda
Pain is intermittent, again worse with chewing
PE - no auricular tenderness, ear drum and canal normal
Tenderness on palpation of L TMJ
No obvious fullness or swelling of parotid gland
Some erythema and fullness upper neck in area of post facial vein
A/P Ear pain
Being treated for venous thrombosis, which can cause pain in this area
However, with pain on chewing, also suspect pt does have some TMJ issues
Describes parotid swelling with eating as well , although exam seems ok
Just had MRI , will review
In addition to antibx and heparin, would also treat with warm soaks and a few doses of steroid
Can follow up as outpt
[2025-08-02 13:21] LABS: Glucose - Point of Care 139 mg/dl (70-99)
[2025-08-02] MEDS: NOVOLOG FLEXPEN-LOW RESISTANCE SC (13:23)
[2025-08-02] MEDS: DECADRON 6 MG IV ×2 (13:26→21:04)
[2025-08-02 14:44] LABS: APTT 67.0 Sec (23.4-35.0)
[2025-08-02 15:17] VITALS: BP 134/99
[2025-08-02 16:48] LABS: Glucose - Point of Care 237 mg/dl (70-99)
[2025-08-02] MEDS: NOVOLOG FLEXPEN-LOW RESISTANCE 2 UNITS SC (18:18)
[2025-08-02 19:00] VITALS: BP 139/95
[2025-08-02] MEDS: ADDERALL PO (21:04)
[2025-08-02 21:56] LABS: Glucose - Point of Care 169 mg/dl (70-99)
[2025-08-02 22:18] LABS: APTT 139.8 Sec (23.4-35.0)
[2025-08-02 23:00] VITALS: BP 132/79
[2025-08-03] MEDS: HEPARIN 25000 UNITS/250 ML IV (00:40)
[2025-08-03 03:00] VITALS: BP 119/79
[2025-08-03] MEDS: CLEOCIN 300 MG PO ×2 (05:10→11:52)
[2025-08-03] MEDS: DECADRON 6 MG IV (05:12)
[2025-08-03 05:40] LABS: Hematocrit 44.7 % (39.0-52.0); Hemoglobin 16.3 g/dL (13.0-18.0); Mean Corp Hgb Conc. 36.5 g/dL (33.0-37.0); Mean Corpuscular Volume 84.5 fL (80.0-94.0); Platelet Count 266 10^3/uL (130-400); Red Cell Dist. Width 12.7 % (11.5-14.5)
[2025-08-03 05:56] LABS: APTT 76.9 Sec (23.4-35.0)
[2025-08-03 07:04] LABS: Blood Urea Nitrogen 18 mg/dl (9-20); Calcium 9.7 mg/dl (8.4-10.2); Carbon Dioxide 22 mmol/L (22-30); Chloride 103 mmol/L (98-107); Estimated Creatinine Clearance 96 ml/min; Glucose 178 mg/dl (70-99); Magnesium 2.3 mg/dl (1.6-2.3); Potassium 4.6 mmol/L (3.5-5.1); Sodium 133 mmol/L (135-145); eGFR > 60.00
[2025-08-03] MEDS: ADDERALL 15 MG PO (07:41)
[2025-08-03 07:47] VITALS: BP 127/87
[2025-08-03 08:01] LABS: Glucose - Point of Care 207 mg/dl (70-99)
--- NOTE | 2025-08-03 08:08 | W.PN.HOSP.TC ---
Addendum entered and electronically signed by Shameka Ascencio MD 08/06/25 08:54:
Mild Hyponatremia
Original Note:
Today's Communication/Plan
-
discharge
Assessment / Plan
Assessment / Plan
Physical Exam
General: No pallor, cyanosis, or jaundice.
HEENT: Throat clear. PERRLA Normocephalic atraumatic. Submandibular Lymphadenopathy
NECK: Supple. No JVD Carotid Bruits
RESPIRATORY: Lungs clear to auscultation. No crackles wheezes stridor
CVS: S1, S2 normal. RRR. No murmur, rub or gallop.
ABDOMEN: Soft, non-tender. No distension. BS+/normal.
EXTREMITIES: No peripheral cyanosis or edema.
BARN OPERATOR: AOx3. conversant coherent
Psych: calm
IMPRESSION:
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 Pt reports developing pain over the left TMJ approximately 3 weeks ago. Saw dentist who treated patient
for 5 cavities. Pain however persisted, exacerbated by chewing hard foods. Primary care provider briefly started patient on unspecified medication for possible trigeminal neuralgia until outpt MRI 07/30 noted extensive thrombus in the left
retromandibular vein. Patient stated the pain continued to worsen and since migrated down to the left side of his face, submandibular area. No pain at rest. Patient denied any prior history of thrombus formation. Denied fever chills nausea
vomiting diarrhea constipation or pain at rest. ED eval was also notable for hypertensive urgency, BP high 165/103. Denies hx hypertension, endorses monitoring BP at home.
PLAN:
#Left retromandibular vein thrombus
hep gtt transitioned to Eliquis, 7 days loading 10 mg BID 08/03/25-08/09/25 then maintenance dose 5mg BID then on
Clindamycin started in ED, cont, total 1 wk planned as per ENT
Hematology Eval appreciated, checking antiphospholipid ab panel, outpt follow up for further thrombophilia testing
ENT eval appreciated steroids for TMJ/Otalgia IV decadron 6 mg Q8H 3 doses completed, medrol dose pack on
MRA/MRV neck appreciated
-Left retromandibular vein thrombosis involving the entire anterior division to the level of the internal jugular vein.
-Thin linear artifact within the left internal jugular vein Versus a linear thrombus component in the left internal jugular vein (US however noted no thrombus in this area)
#HTN Urgency resolved
Tele admit
prn Labetalol Hydralazine SBP>160 or DBP>100 (Hold Labetalol if HR<60)
BP since improved following once dose Labetalol.
#Hx NIDDM
A1c 7.6
low dose sliding scale for now
ok for regular diet
#Hx Marijuana use
UDS appreciated expected pos marijuana amphetamine, rest of screen neg
#ADHD
cont home Adderall
DVT ppx Hep gtt as above
Full Code
Medically stable for discharge home with outpatient follow up recommendations
Total Time Preparing Discharge ___40____ minutes including examination of the patient, summary of the hospital stay, instructions for continuing care to all relevant caregivers; and preparation of discharge records, prescriptions, and referral
forms if necessary.
Anticipated Discharge: Today
Subjective/Interval History
-
Date of Service: August 03, 2025
Seen and examined at bedside in no acute distress. Overall reports feeling well. Denies new acute issues at this time. Eager to go home
Objective Data
-
Labs:
Laboratory Results
08/02/25 08/03/25 08/03/25
21:56 05:28 12:08
WBC 10.8
Hgb 16.3
Hct 44.7
Plt Count 266
APTT 139.8 H 76.9 H Pending
Sodium 133 L
Potassium 4.6
Chloride 103
Carbon Dioxide 22
BUN 18
Creatinine 0.9
Glucose 178 H
Calcium 9.7
Vital Signs:
Vital Signs
Temp Pulse Resp BP Pulse Ox
97.9 F 77 16 127/87 98
08/03/25 07:47 08/03/25 07:47 08/03/25 07:47 08/03/25 07:47 08/03/25 07:47
I&O
08/02/25 08/03/25 08/04/25
06:59 06:59 06:59
Intake Total 480 / 480
Balance 480 / 480
[2025-08-03] MEDS: NOVOLOG FLEXPEN-LOW RESISTANCE 2 UNITS SC (09:16)
--- NOTE | 2025-08-03 10:10 | W.PN.ONC2 ---
Today's Communication / Plan
-
Anticoagulation treatment. No reason from hematologic perspective patient can be transition to DOAC and discharged. Follow-up with hematology in 6 to 8 weeks assuming clinical improvement for completion of hypercoagulable workup as outpatient.
Suspect anticoagulation duration of 3 months unless patient is found to have hypercoagulable syndrome.
Impression
Impression
Extensive thrombophlebitis of the left retromandibular vein
Plan
Plan
Unusual site of thrombosis.
Still, suggest standard and similar to other areas of thrombosis namely IV heparin with transition to DOAC at the time of discharge
Will check antiphospholipid antibody panel. Remainder of thrombophilia testing to be done as an outpatient
MRA MRV of the neck and MRI of the brain reviewed. Basically just shows what we know about which is the thrombosis.
ENT consult ordered
He is hospital and arrange outpatient hematology follow-up
Subjective/Objective
Chief Complaint
ACS heme-onc follow-up
Subjective
No new complaints. As I came in he was just starting to eat breakfast. On IV heparin. He seems to feel slightly better but once to see how it goes as he just woke up.
Vital Signs:
Vital Signs
Temp Pulse Resp BP Pulse Ox
97.9 F 77 16 127/87 98
08/03/25 07:47 08/03/25 07:47 08/03/25 07:47 08/03/25 07:47 08/03/25 08:30
Lab Results:
Laboratory Data
WBC 10.8 10^3/uL (4.8-10.8) 08/03/25 05:28
Hgb 16.3 g/dL (13.0-18.0) 08/03/25 05:28
Plt Count 266 10^3/uL (130-400) 08/03/25 05:28
PT 12.6 Sec (11.4-14.6) 08/01/25 15:42
INR 0.91 08/01/25 15:42
APTT 76.9 Sec (23.4-35.0) H 08/03/25 05:28
eGFR > 60.00 08/03/25 05:28
Physical Exam
Cardiology: S1 and S2
Pulmonary: Clear
GI: Soft
[2025-08-03 11:39] LABS: Glucose - Point of Care 187 mg/dl (70-99)
[2025-08-03] MEDS: ELIQUIS 10 MG PO (11:49)
[2025-08-03] MEDS: NOVOLOG FLEXPEN-LOW RESISTANCE 1 UNITS SC (11:50)
--- NOTE | 2025-08-03 12:05 | W.PN.UPDATE ---
Update Note
Progress Note Update
Pt feeling better
Less pain
PE - TMJ less tender
OC - normal
Neck - less erythema and tenderness
A/P Otalgia - TMJ
OK to discharge, soft diet, warm compresses, could offer steroid taper such as Medrol dose pack
Follow up ENT as oupt
Finish antibx x 1 week, anticoagulation as per Hematology
--- NOTE | 2025-08-03 14:47 | W.DCSUMMARY ---
Discharge Summary
Discharge Data
Date of Admission: 08/01/25
Date of Discharge: 08/03/25
-
Pending Results: No
Discharge Plan
-
Patient Disposition: Home (Routine Discharge)
Discharge Diagnosis/Procedures: Left retromandibular vein thrombus
TMJ pain
Diabetes
Condition: Fair
Diet: Diabetic, Carb Controlled
Activity: As tolerated
Driving Restrictions: As prior to admission
Bathing Restrictions: None
Activity Restrictions/Additional Instructions:
Follow up with primary care provider in 1 week of discharge, ENT in 2-4 weeks of discharge, and Hematology in 6-8 weeks of discharge.
Eliquis has been prescribed for retromandibular vein thrombosis:
Take 10 mg (2 tabs) twice a day for 7 days 08/03/25 to 08/09/25 to complete loading dose.
Then start maintenance dose 5 mg (1 tab) twice a day 08/10/25 from then on.
Clindamycin prescribed to reduce your risk of infection from thrombosis as above. Completed 2 days in hospital, 5 more days prescribed, then stop.
Medrol dose nitesh, steroid taper, has been prescribed for TMJ pain.
Please take medications as prescribed/recommended and follow up with primary care provider and/or other healthcare provider involved in your care for refills and/or further adjustment to your medication regimen as necessary.
Referrals:
Ayde Rothman MD [Active, Oncology] - in six weeks
Cale Gaspar DO [Family Provider, Family Practice] - in one week
Prem Tse MD [Active, Otology] - in two to four weeks
Prescriptions:
New
Eliquis 5 mg tablet
5 mg PO BID Qty: 74 0RF
Rx Instructions:
10 mg twice a day 08/03-08/09
Then 5 mg twice a day from then on
methylprednisolone [Medrol (Nitesh)] 4 mg tablets,dose pack
See Rx Instructions .ROUTE .COMPLEX Qty: 21 0RF
Rx Instructions:
for 6 days
clindamycin HCl [Cleocin HCl] 300 mg capsule
300 mg PO Q6H 5 Days Qty: 20 0RF
Continued
dextroamphetamine-amphetamine [Adderall] 30 mg Tablet
15 mg PO BID
Discharge Orders:
Discharge Patient (As Directed); Ordered 08/03/25
Ordered By: Shameka Ascencio
Discharge Date and Time
Print Language: NEPALI
[2025-08-03 15:50] VITALS: BP 120/88
[2025-08-05 01:37] LABS: Beta-2-Glycoprotein I Ab. IgG <10 SGU (<=20); Beta-2-Glycoprotein I Ab. IgM <10 SMU (<=20)
--- NOTE | 2025-08-05 15:18 | PN.CDI ---
CDI
- -
CDI:
Physician Documentation Request
Admit Date: 08/01/25 19:06
Dear Doctor Sonu,
Please review the following and provide your response in the progress notes.
Clinical Indicators:
Pt admitted with Left retromandibular vein thrombus
Documented below are sodium labs
Laboratory Tests
08/02/25 08/03/25
06:55 05:28
Sodium 134 L 133 L
Based on the above, could you clarify in the progress notes, the appropriate diagnosis, if significant, that supports the above abnormalities and additional evaluation, monitoring and/or treatment rendered:
Hyponatremia
Abnormal lab value
Other (please specify)
Use of terms such as suspected, likely, concern for, or probable (associated with a specific diagnosis that is being evaluated, monitored, or treated as if it exists) are acceptable and can be coded in the inpatient setting, when documented at the
time of discharge.
Thank you,
Sophie Philippe RN
CDI Specialist
[place] [facility]
Please use your independent medical judgment in providing your response.
[2025-08-09 04:14] LABS: Anticoagulant Med Neutralizati Hepzyme (Not Performed); Neutralized dRVTT Screen Ratio Not Performed (<=1.20); Prothrombin Time 14.0 s (12.0-15.5); dRVTT 1.1 Mix Ratio Not Performed (<=1.20); dRVTT Confirmation Ratio Not Performed (<=1.20); dRVTT Screen Ratio 0.79 (<=1.20)
== END 2025-08-03 15:58 | disposition home or self-care (01) | DRG 300 ==
LOC: 3 WEST ACU 19:06
PROVIDERS: Nurse Practitioner; ADMITTING PHYSICIAN Internal Medicine; EMERGENCY PHYSICIAN Emergency Medicine; FAMILY PHYSICIAN Student in an Organized Health Care Education/Training Program; OTHER PHYSICIAN Internal Medicine Hematology & Oncology; OTHER PHYSICIAN Otolaryngology
DX: I82.890 Acute embolism and thrombosis of other specified veins (principal); E87.1 Hypo-osmolality and hyponatremia; M26.629 Arthralgia of temporomandibular joint, unspecified side; E11.649 Type 2 diabetes mellitus with hypoglycemia without coma; I16.0 Hypertensive urgency; F12.90 Cannabis use, unspecified, uncomplicated; F90.9 Attention-deficit hyperactivity disorder, unspecified type; Z79.899 Other long term (current) drug therapy; Z87.891 Personal history of nicotine dependence
CPT/HCPCS: 70549; 80048; 80053; 80306; 80307; 82962; 83036; 83735; 84100; 85025; 85027; 85610; 85613; 85730; 86146; 86147; 93971; 96374; 96375; 99285; A9585